=== PATIENT | male | born 2005 | race Caucasian/White ===

== ENCOUNTER 2024-03-15 19:43 | Emergency (ER) | payer OTHER, SELFPAY ==
[2024-03-15 19:50] VITALS: BP 148/95
--- NOTE | 2024-03-15 20:12 | ED.MUSCINJ ---
HPI-Injury
General
Chief Complaint: Musculo-Skeletal Complaint
Source: patient and family (Dad)
Exam Limitations: none
Time Seen by Provider: 03/15/24 20:03
Travel History
Have you had any contact with someone who has COVID-19?: No
Do you have any symptoms of coronavirus? Fever > 100 degrees, chills, cough, shortness of breath, sore throat, loss of taste or smell, muscle aches, or headache?: No
History of Present Illness-Injury
Is this injury a work related problem?: No
Is pt an associate of [facility]?: No
Initial Injury comments:
This is a 18 year old male that comes in with c/o right ankle pain. Dad states that he was out walking in the park and his Grandmother noticed that he was limping when he got back to the car. States that he told her he fell. Dad state that he is not
sure if he fell or just twisted his ankle. Patient states that he did fall. Dad states that he has hardware in the ankle to they have been through this before. Denies hitting his head or any LOC. Denies any nausea, vomiting, diarrhea, headache,
dizziness.
Past History
Past History
ED Past Medical History: HTN, Psychiatric (Anxiety, ) and Other (Cerebellar syndrome .Growth stinted)
ED Past Surgical History: Orthopedic (Bilateral ankle with hardware) and Other (Hernia, Adnoids, )
Social History
Tobacco: Non-smoker
Alcohol: None
Drug: None
Personal: Single
Living: with family
Review of Systems
Review of Systems
Other source history: family
All Other Systems: ROS reviewed and negative except as documented in HPI and ROS
Constitutional: Reports no symptoms; Denies fever or chills
EENT: Reports no symptoms
Cardiac: Reports no symptoms
ABD/GI: Reports no symptoms
: Reports no symptoms
Musculoskeletal: Reports joint pain (Right ankle pain)
Skin: Reports no symptoms
Neurological: Reports no symptoms; Denies dizzy or headache
Psychiatric: Reports no symptoms
Musculoskeletal Injury Exam
Musculoskeletal Injury Exam
Right Lateral Ankle:
Pain with Movement?: Mild
Tender to palpation?: Mild
Soft tissue swelling?: Mild
External deformity and angulation?: None
Joint effusion?: None
Contusion?: None
Hematoma-local bleeding into tissue?: None
Strain- Sprain- Tear (Connective tissue injury)?: Mild
Crepitus with movement?: No
Joint instability?: No
Malalignment/deformity?: No
Range of motion: Limited
Distal skin color and temperature: normal-warm & good color
Capillary Refill: normal
Normal distal neurovascular exam?: Yes
Phy Exam
General Physical Exam
General Presentation: well appearing and no apparent distress
General age: appears younger than age
General Skin: warm and dry
General Habitus: normal
General Mental: usual mental status
General Hydration: appears well hydrated
Eye Exam
Eye Exam: EOMI
Musculoskeletal Exam
Musculoskeletal Exam: other (Right lateral ankle swelling, Patient able to planter and dorsal flex Tender to palpation on the lateral ankle)
Skin Exam
Skin Exam: normal color, warm/dry, no rash and no petechia
Psychiatric Exam
Psychiatric Exam: normal mood/affect
Injury Course
Orders/Labs/Results
Orders:
Orders
03/15/24 19:53
CR Ankle - Right Min 3 Views * Urgent
Comment:
Reason For Exam: injury, swelling
MDM/Problems Addressed
Differential Diagnosis Includes:
Ankle sprain. Ankle fracture
MDM/Problems Addressed:
This is a 18 year old male that is brought in by dad with c/o right ankle pain. Dad state that he told his grandmother that he fell in the park.
Will get X-ray.
Back into see dad. Explained that the X-ray appears normal. Will use Air splint and bradford wrap. Patient to elevated and apply ice. Ibuprofen for any pain.
Back into see patient and Dad. Explained that no obvious fracture are noted. Will place patient in bradford and air splint. Patient to use Ice and elevated. Patient can use Ibuprofen for pain. When the Xray is read by the radiologist, if there is
anything different he would be called.
Chronic conditions affecting care: Other (Ankle bilateral surgery)
Acute Exacerbation and/or Progression of Chronic Illness: Other (Bilateral ankle surgery)
*Radiology
Radiology exam reviewed: preliminary read by ED provider (Right ankle- Negative for fracture of dislocation. )
*Pulse Oximetry
Patient hypoxic: no
*EKG
Interpreted by ED Provider?: NA
Rate: EKG- N/A
*Tele Rn Interpretation
Rate: Tele Rn- N/A
*Critical Care Note
Total Time (30-74mins, 75-104mins- exclusive of procedures): Not Applicable
ED Attending Note
-
Portions of this chart may have been created with voice recognition software.� Occasional wrong word or��sound alike� substitutions may have occurred due to the inherent limitations of voice recognition software.
Discharge Plan
Departure
Patient Disposition: Home (Routine Discharge)
Date of Disposition: 03/15/24
Time of Disposition: 20:26
Patient with high blood pressure during this ER visit?: Yes
Condition: Good
Covid-19: Not Applicable
Discharge Problem:
Ankle sprain
Instructions: Ankle Sprain ED, BLOOD PRESSURE, RICE Therapy
Prescriptions:
No Action
fluoxetine 20 MG/5 ML solution
20 mg PO DAILY
somatropin 5 MG/1.5 ML cartridge
1.2 ml SQ .6XWEEKLY
amlodipine 2.5 MG tablet
1 mg PO DAILY
melatonin 2.5 MG/10 ML liquid
6 ml PO HS
lisinopril [Qbrelis] 1 MG/ML solution
1 mg PO DAILY
Referrals:
Cheo Daigle DO [Family Provider] -
Activity Restrictions/Additional Instructions:
As discussed, your X-ray appears negative or any fracture or dislocation. This will be ready again in the morning by the Radiologist and if there is anything different you will be called. Please use the bradford and air splint until you are pain free.
Ibuprofen 400mg every 6 hours with food for pain. Rest, ice and elevated. IF YOU HAVE ANY OTHER CONCERNS PLEASE RETURN TO THE EMERGENCY ROOM.
Interventions
Interventions:
*Risk Screen - Suicide Last Done: 03/15/24 19:50
*General Assessment Last Done: 03/15/24 19:50
*Neglect/Abuse Screening Last Done: 03/15/24 19:50
ED- Fall Risk Assessment Last Done: 03/15/24 20:08
*ED COVID-19 Vaccine History Last Done: 03/15/24 20:08
Discharge Date and Time
Print Language: LITHUANIAN
[2024-03-15 20:22] VITALS: BMI 15.6
[2024-03-15] MEDS: MOTRIN 400 MG PO (20:37)
== END 2024-03-15 20:43 | disposition home or self-care (01) ==
LOC: EMR 19:43
PROVIDERS: EMERGENCY PHYSICIAN Emergency Medicine; FAMILY PHYSICIAN Pediatrics
DX: S93.401A Sprain of unspecified ligament of right ankle, initial encounter (principal); X50.1XXA Overexertion from prolonged static or awkward postures, initial encounter; I10 Essential (primary) hypertension
CPT/HCPCS: 99283; 73610

== ENCOUNTER 2025-06-10 20:24 | Emergency (ER) | payer OTHER, BC, SELFPAY ==
[2025-06-10 20:27] VITALS: BP 170/100
--- NOTE | 2025-06-10 21:46 | ED.GENMED ---
History of Present Illness
General
Chief Complaint: Musculo-Skeletal Complaint
Time Seen by Provider: 06/10/25 21:36
History of Present Illness
History of Present Illness:
See MDM
Past History
Past History
ED Past Medical History: HTN, Psychiatric (Anxiety, ) and Other (Cerebellar syndrome .Growth stinted)
ED Past Surgical History: Orthopedic (Bilateral ankle with hardware) and Other (Hernia, Adnoids, )
Social History
Tobacco: Non-smoker
Alcohol: None
Drug: None
Personal: Single
Living: with family
Phy Exam
Physical Exam
Physical Exam:
See MDM
Course
Orders/Labs/Results
Orders:
Orders
06/10/25 20:29
CR Ankle - Right Min 3 Views * Urgent
Comment:
Reason For Exam: injury
Vital Signs
Initial and Last Documented VS:
Initial Vital Signs
Temp Pulse Resp BP Pulse Ox
98.0 F 77 20 170/100 97
06/10/25 20:27 06/10/25 20:27 06/10/25 20:27 06/10/25 20:27 06/10/25 20:27
Last Documented Vital Signs
Temp Pulse Resp BP Pulse Ox
98.0 F 77 20 170/100 97
06/10/25 20:27 06/10/25 20:27 06/10/25 20:27 06/10/25 20:27 06/10/25 20:27
MDM/Problems Addressed
Differential Diagnosis Includes:
HPI and MDM Narrative:
19-year-old male presenting with father for evaluation of right ankle injury. Patient twisted his ankle while playing golf. Due to his prior medical history and prior ankle surgeries, the father admits that he brought him in just to make sure
there is no break. Patient ambulating without difficulty. I did evaluate the x-ray and I do not appreciate any obvious fracture. He does have swelling and tenderness over the right lateral malleolus. We discussed ankle sprain and return
precautions
Physical exam
General: Well appearing and non-toxic
HEENT: protecting airway
Neck: appears supple
CV: No evidence of cyanosis
Resp: No accessory muscle use
Abd: Non-distended
Extremities: Swelling to right lateral malleolus. Distal extremity neurovascular intact
Neuro: alert
Psych: Normal affect
Skin: Intact
Problems Addressed including Acute and Chronic Conditions affecting care:
1. Ankle sprain
Acuity: acute
Prognosis: stable
Details: Discussed return precautions and pain control
Differential Diagnosis (but not limited to): Ankle sprain, avulsion fracture
Testing considered: Foot x-ray
Drug therapy (if applicable): OTC meds, please see d/c instruction regarding Rx drugs
Amount and/or Complexity of Data Reviewed
Clinical info obtained from: Father
External data reviewed: N/A
Labs I independently reviewed (but not limited to): N/A
Radiology: X-ray independently reviewed: Right ankle x-ray without obvious fracture
Pulse Ox: not hypoxic
EKG independently reviewed: N/A
Oil Filters Inspector: N/A
Critical Care: N/A
Risk of Complication:
Social Determinants of health: Good social support
Discussed with other providers: N/A
Escalation of Care includes Admit/Obs: After being observed in the Emergency Department, pt stable for discharge.
Occasional wrong word or 'sound a like' substitutions may have occurred due to the inherent limitations of voice recognition software. Read the chart carefully and recognize, using context, where substitutions have occurred.
*Pulse Oximetry
SaO2: 97
Oxygen Mode of Delivery: Room air
Patient hypoxic: no
*Critical Care Note
Total Time (30-74mins, 75-104mins- exclusive of procedures): Not Applicable
ED Attending Note
-
Portions of this chart may have been created with voice recognition software.� Occasional wrong word or��sound alike� substitutions may have occurred due to the inherent limitations of voice recognition software.
Discharge Plan
Departure
Patient Disposition: Home (Routine Discharge)
Date of Disposition: 06/10/25
Time of Disposition: 21:47
Patient with high blood pressure during this ER visit?: Yes
Discharge Problem:
Ankle sprain
Instructions: Sprain (DC)
Prescriptions:
No Action
fluoxetine 20 MG/5 ML solution
20 mg PO DAILY
somatropin 5 MG/1.5 ML cartridge
1.2 ml SQ .6XWEEKLY
amlodipine 2.5 MG tablet
1 mg PO DAILY
melatonin 2.5 MG/10 ML liquid
6 ml PO HS
lisinopril [Qbrelis] 1 MG/ML solution
1 mg PO DAILY
Activity Restrictions/Additional Instructions:
Please return for any worsening symptoms.
You may return at any time if you have further concerns.
Please follow up with your doctor at the first available appointment, preferably this week.
Thank you for choosing [facility].
Interventions
Interventions:
*Risk Screen - Suicide Last Done: 06/10/25 20:58
*General Assessment Last Done: 06/10/25 20:27
*Neglect/Abuse Screening Last Done: 06/10/25 20:58
*ED- Fall Risk Assessment Last Done: 06/10/25 20:58
ED-Musculoskeletal Assessment Last Done: 06/10/25 20:58
Discharge Date and Time
Print Language: IRISH
== END 2025-06-10 21:48 | disposition home or self-care (01) ==
LOC: EMR 20:24
PROVIDERS: EMERGENCY PHYSICIAN Student in an Organized Health Care Education/Training Program; FAMILY PHYSICIAN Pediatrics
DX: S93.401A Sprain of unspecified ligament of right ankle, initial encounter (principal); I10 Essential (primary) hypertension; F41.9 Anxiety disorder, unspecified; X50.1XXA Overexertion from prolonged static or awkward postures, initial encounter; Y93.53 Activity, golf
CPT/HCPCS: 99283; 73610